=== PATIENT | female | born 1950 | race Caucasian/White ===

== ENCOUNTER 2017-01-22 11:22 | Emergency (ER) | payer MEDICARE, OTHER ==
[~2017-01-22] VITALS: Ht 162.6 cm; Wt 50.0 kg
[2017-01-22 11:24] VITALS: BP 140/72; PULSE 112; RESP 24; TEMP 97.8; O2SAT 100
--- NOTE | 2017-01-22 12:31 | PD ---
HPI Chief Complaint: GI Complaint Time Seen by Provider: 12:31 Travel History International Travel<30 days: No Contact w/Intl Traveler<30days: No Traveled to known affect area: No History of Present Illness HPI 66-year-old female came to the emergency room with history of epigastric pain. Patient says this has been going on for past 2 weeks on and off but for past 3 days has been more continuous. Currently the pain is 8-9 out of 10. There is some nausea and vomiting but no blood in the vomitus. Patient has history of constipation and normally goes every 4-7 days. She says she had a bowel movement yesterday which appeared to be her normal. She thinks she fully evacuated. She does not have a primary care physician. Her is here who is giving additional history and says last time when she had similar pain which was 10 years ago she was vomiting blood and was diagnosed with gastric ulcer. Patient says drinking orange juice makes the pain worse and eating soup makes it better. Incidentally she is eating tomato soup. Patient was tachycardic in triage. She appears to be very anxious. [facility] Past Medical History Narrative Medical List of her past medical, surgical, social and family history is reviewed from the nursing note. Social History Tobacco Use: No Allergies-Medications (Allergen,Severity, Reaction): Coded Allergies: No Known Allergies (Unverified , 01/22/17) Comments No known drug allergies. Reported Meds & Prescriptions Reported Meds & Active Scripts Active Zofran Odt (Ondansetron Odt) 4 Mg Tab 4 Mg SL Q6HR PRN Protonix (Pantoprazole Sodium) 40 Mg Tab 40 Mg PO DAILY Narrative Medication List of her home medications reviewed from the nursing note. Review of Systems Except as stated in HPI: all other systems reviewed are Neg Physical Exam Narrative GENERAL: Awake, alert, anxious, moderate distress SKIN: Focused skin assessment warm/dry. HEAD: Atraumatic. Normocephalic. EYES: Pupils equal and round. No scleral icterus. No injection or drainage. ENT: No nasal bleeding or discharge. Mucous membranes pink and moist. NECK: Trachea midline. No JVD. CARDIOVASCULAR: Regular rate and rhythm. No murmur appreciated. RESPIRATORY: No accessory muscle use. Clear to auscultation. Breath sounds equal bilaterally. GASTROINTESTINAL: Abdomen soft, epigastric tenderness, nondistended. Hepatic and splenic margins not palpable. MUSCULOSKELETAL: No obvious deformities. No clubbing. No cyanosis. No edema. NEUROLOGICAL: Awake and alert. No obvious cranial nerve deficits. Motor grossly within normal limits. Normal speech. PSYCHIATRIC: Appropriate mood and affect; insight and judgment normal. Data Data Last Documented VS Vital Signs Date Time Temp Pulse Resp B/P (MAP) Pulse Ox O2 Delivery O2 Flow Rate FiO2 01/22/17 12:44 99 01/22/17 11:24 97.8 112 24 Room Air Orders Orders Electrocardiogram (01/22/17 11:30) Complete Blood Count With Diff (01/22/17 12:41) Comprehensive Metabolic Panel (01/22/17 12:41) Lipase (01/22/17 12:41) Urinalysis - C+S If Indicated (01/22/17 12:41) Iv Access Insert/Monitor (01/22/17 12:41) Ecg Monitoring (01/22/17 12:41) Oximetry (01/22/17 12:41) Pantoprazole Inj (Protonix Inj) (01/22/17 12:45) Sodium Chlor 0.9% 1000 Ml Inj (Ns 1000 M (01/22/17 12:41) Sodium Chloride 0.9% Flush (Ns Flush) (01/22/17 12:45) Ed Poc Ultrasound (01/22/17 ) Troponin I (01/22/17 12:42) Morphine Inj (Morphine Inj) (01/22/17 13:00) Ondansetron Inj (Zofran Inj) (01/22/17 13:00) Ct Abd/Pel W/O Iv Contrast (01/22/17 ) Potassium Chloride Eff (K-Lyte Cl Eff) (01/22/17 14:15) Labs Laboratory Tests Test 01/22/17 13:00 01/22/17 13:35 White Blood Count 7.3 TH/MM3 Red Blood Count 4.54 MIL/MM3 Hemoglobin 13.6 GM/DL Hematocrit 40.8 % Mean Corpuscular Volume 89.7 FL Mean Corpuscular Hemoglobin 29.9 PG Mean Corpuscular Hemoglobin Concent 33.3 % Red Cell Distribution Width 13.3 % Platelet Count 267 TH/MM3 Mean Platelet Volume 8.0 FL Neutrophils (%) (Auto) 66.6 % Lymphocytes (%) (Auto) 26.9 % Monocytes (%) (Auto) 5.8 % Eosinophils (%) (Auto) 0.3 % Basophils (%) (Auto) 0.4 % Neutrophils # (Auto) 4.9 TH/MM3 Lymphocytes # (Auto) 2.0 TH/MM3 Monocytes # (Auto) 0.4 TH/MM3 Eosinophils # (Auto) 0.0 TH/MM3 Basophils # (Auto) 0.0 TH/MM3 CBC Comment DIFF FINAL Differential Comment Blood Urea Nitrogen 8 MG/DL Creatinine 0.57 MG/DL Random Glucose 99 MG/DL Total Protein 8.0 GM/DL Albumin 4.3 GM/DL Calcium Level 9.8 MG/DL Alkaline Phosphatase 60 U/L Aspartate Amino Transf (AST/SGOT) 20 U/L Alanine Aminotransferase (ALT/SGPT) 21 U/L Total Bilirubin 0.5 MG/DL Sodium Level 139 MEQ/L Potassium Level 3.4 MEQ/L Chloride Level 106 MEQ/L Carbon Dioxide Level 27.1 MEQ/L Anion Gap 6 MEQ/L Estimat Glomerular Filtration Rate 106 ML/MIN Troponin I LESS THAN 0.02 NG/ML Lipase 105 U/L Urine Color LIGHT-YELLOW Urine Turbidity CLEAR Urine pH 7.5 Urine Specific [place] 1.004 Urine Protein NEG mg/dL Urine Glucose (UA) NEG mg/dL Urine Ketones NEG mg/dL Urine Occult Blood NEG Urine Nitrite NEG Urine Bilirubin NEG Urine Urobilinogen LESS THAN 2.0 MG/DL Urine Leukocyte Esterase SMALL Urine RBC 1 /hpf Urine Squamous Epithelial Cells <1 /hpf Microscopic Urinalysis Comment CULT NOT INDICATED MDM Medical Decision Making Medical Screen Exam Complete: Yes Emergency Medical Condition: Yes Medical Record Reviewed: Yes Interpretation(s) Twelve-lead EKG was reviewed by me. Normal sinus rhythm, normal axis, nonspecific ST-T wave changes. Heart rate of 95 bpm. Differential Diagnosis Acute gastritis, acute pancreatitis, acute cholecystitis Narrative Course 1:07 PM patient was given IV Protonix, IV morphine and IV Zofran. She was also given a liter of IV fluid bolus. Awaiting for the blood test and the CAT scan to be done and resulted. 2:03 PM blood test results and CAT scan have come back and they're within acceptable limit. Potassium is slightly low and I have ordered for by mouth replacement. I'll discharge her home with a prescription for Protonix. UA is pending. Procedures Procedure Narrative Emergency department right upper quadrant ultrasound was performed with patient consent. Curvilinear probe was used in the transverse and sagittal views within the right upper quadrant revealing gallbladder without obvious wall thickening, cholecystic fluid, or cholelithiasis. EKG Prior to Arrival: Yes Diagnosis Primary Impression: Acute gastritis Qualified Codes: K29.00 - Acute gastritis without bleeding Additional Impression: Abdominal pain Qualified Codes: R10.13 - Epigastric pain Referrals: Primary Care Physician Additional Instructions: Please return to the ER if the condition worsens or any other new concerns. Otherwise take the medication as per the prescription direction. Follow-up with your primary care in couple days. If the pain continues he might need an endoscopy. In which case your primary care we'll have to refer you to a GI specialist. Do not eat food or food that are acidic and citric in nature like [place], lines, oranges, grapefruits, strawberries, tomato, ketchup etc. Med/Other Pt SpecificInfo: Prescription(s) given Scripts Ondansetron Odt (Zofran Odt) 4 Mg Tab 4 MG SL Q6HR Y for Nausea/Vomiting, #12 TAB 0 Refills Prov: Perlita Marquez MD 01/22/17 Pantoprazole (Protonix) 40 Mg Tab 40 MG PO DAILY for Reflux, #30 TAB 0 Refills Prov: Perlita Marquez MD 01/22/17 Disposition: 01 DISCHARGE HOME Condition: Stable Perlita Marquez MD Jan 22, 2017 12:31
[2017-01-22] MEDS ORDERED: SODIUM CHLOR 0.9% 1000 ML INJ 1,000 ML IV SCH (12:41)
[2017-01-22 12:44] VITALS: O2SAT 99
[2017-01-22] MEDS ORDERED: PANTOPRAZOLE SODIUM 40 MG VIAL IVP ONE (12:45)
[2017-01-22] MEDS ORDERED: SODIUM CHLORIDE 0.9% FLUSH 10 ML FLUSH IV FLUSH PRN (12:45)
[2017-01-22] MEDS ORDERED: ONDANSETRON HCL 4 MG/2 ML VIAL IV PUSH ONE (13:00)
[2017-01-22] MEDS ORDERED: MORPHINE SULFATE 4 MG/ML INJ IV PUSH ONE (13:00)
[2017-01-22 13:20] LABS: AUTOMATED NEUTROPHIL # 4.9 TH/MM3 (1.8-7.7); BASOPHIL % 0.4 % (0.0-2.0); EOSINOPHIL % 0.3 % (0.0-4.0); HEMATOCRIT 40.8 % (35.0-46.0); HEMO FLAGS DIFF FINAL; LYMPH % 26.9 % (9.0-44.0); MEAN CELL VOLUME 89.7 FL (80.0-100.0); MEAN CORPUSCULAR HEMOGLOBIN 29.9 PG (27.0-34.0); MEAN CORPUSCULAR HGB CONC 33.3 % (32.0-36.0); MONO % 5.8 % (0.0-8.0); NEUT % 66.6 % (16.0-70.0); PLATELET COUNT 267 TH/MM3 (150-450); RED BLOOD COUNT 4.54 MIL/MM3 (4.00-5.30); RED CELL DISTRIBUTION WIDTH 13.3 % (11.6-17.2); WHITE BLOOD COUNT 7.3 TH/MM3 (4.0-11.0)
[2017-01-22 13:37] LABS: ANION GAP 6 MEQ/L (5-15); AST (GOT) 20 U/L (15-37); BICARBONATE 27.1 MEQ/L (21.0-32.0); BLOOD UREA NITROGEN 8 MG/DL (7-18); CHLORIDE 106 MEQ/L (98-107); GLOMERULAR FILTRATION RATE 106 ML/MIN (>89); POTASSIUM 3.4 MEQ/L (3.5-5.1); SODIUM (NA) 139 MEQ/L (136-145)
[2017-01-22 13:38] LABS: ALT (GPT) 21 U/L (10-53)
[2017-01-22 13:40] LABS: ALKALINE PHOSPHATASE 60 U/L (45-117); TOTAL BILIRUBIN ADULT 0.5 MG/DL (0.2-1.0)
--- NOTE | 2017-01-22 13:59 | RADRPT ---
EXAM DATE/TIME: 01/22/2017 13:14 [place] COMPARISON: No previous studies available for comparison. INDICATIONS : Epigastric pain for 1 week ORAL CONTRAST: No oral contrast ingested. RADIATION DOSE: 6.13 CTDIvol (mGy) MEDICAL HISTORY : Ulcers. SURGICAL HISTORY : None. ENCOUNTER: Initial ACUITY: 1 week PAIN SCALE: 9/10 LOCATION: epigastric TECHNIQUE: Volumetric scanning of the abdomen and pelvis was performed. Using automated exposure control and ad justment of the mA and/or kV according to patient size, radiation dose was kept as low as reasonably achievable to obtain optimal diagnostic quality images. DICOM format image data is available electro nically for review and comparison. FINDINGS: LOWER LUNGS: Minimal parenchymal changes are seen anteriorly in the left lung. There is no pericardial effusion. LIVER: Homogeneous density without lesion. There is no dilation of the biliary tree. No calcified gallston es. SPLEEN: Normal size without lesion. PANCREAS: Within normal limits. KIDNEYS: Normal in size and shape. There is no mass, stone, or hydronephrosis. ADRENAL GLANDS: Within normal limits. VASCULAR: There is no aortic aneurysm. BOWEL/MESENTERY: Minimal radiographic contrast is present in the descending colon. ABDOMINAL WALL: Within normal limits. RETROPERITONEUM: There is no lymphadenopathy. BLADDER: No wall thickening or mass. REPRODUCTIVE: Within normal limits. INGUINAL: There is no lymphadenopathy or hernia. MUSCULOSKELETAL: Within normal limits for patient age. CONCLUSION: I do not see an etiology of patient's abdominal pain. Minimal parenchymal changes anteriorly left lung. Marvel Pearson MD FACR on January 22, 2017 at 13:56 Board Certified Radiologist. This report was verified electronically.
[2017-01-22 14:00] LABS: BLOOD, URINE NEG (NEG); GLUCOSE,URINE NEG (NEG); KETONE, URINE NEG (NEG); NITRITE,URINE NEG (NEG); PH, URINE 7.5 (5.0-8.5); SQUAMOUS EPITHELIAL CELL URINE <1 /hpf (0-5); URINE COLOR LIGHT-YELLOW (YELLW/STRAW)
[2017-01-22 14:03] LABS: COMMENT (UR) CULT NOT INDICATED; CULTURE IF INDICATED CULT NOT INDICATED
[2017-01-22] MEDS ORDERED: PROT40TA PO (14:05)
[2017-01-22] MEDS ORDERED: ZOFR4TAB3 SL (14:05)
[2017-01-22] MEDS ORDERED: POTASSIUM CHLORIDE 25 MEQ EFFERVESCENT TAB PO ONE (14:15)
--- NOTE | 2017-01-23 14:11 | EKG ---
Date Performed: 01/22/2017 Time Performed: 11:36:32 PTAGE: 66 years EKG: Sinus rhythm POSSIBLE LEFT ATRIAL ENLARGEMENT MARKED LEFT AXIS DEVIATION INCOMPLETE RIGHT BUNDLE BRANCH BLOCK ABN ORMAL ECG NO PREVIOUS TRACING DOCTOR: Axel Amaya Interpretating Date/Time 01/23/2017 14:08:49
== END 2017-01-22 14:22 | disposition home or self-care (01) ==
LOC: NEPD 11:22
DX: K29.00 Acute gastritis without bleeding (principal); R10.13 Epigastric pain; I45.10 Unspecified right bundle-branch block
CPT/HCPCS: 74176; 80053; 81001; 83690; 84484; 85025; 93005; 96374; 96375; 99285; C9113; J2270; J2405; J7030